=== PATIENT | male | born 1980 | race Two or more races ===

== ENCOUNTER 2022-05-23 18:24 | Emergency (ER) | payer MEDICAID ==
[~2022-05-23] VITALS: Ht 167.6 cm; Wt 81.6 kg
--- NOTE | 2022-05-23 20:27 | NUR ---
Dr. Dotson at bedside for MSE
--- NOTE | 2022-05-23 20:28 | NUR ---
pt in room 4b pt denies dizziness, pt c/o left face side pain, and left arm numbness. pt with steady gait. pupils equal round reactive. pt with symmetrical smile and sticks tongue out midline.
[2022-05-23] MEDS ORDERED: IV NORMAL SALINE 1000 ML BAG IV ONE (20:30)
--- NOTE | 2022-05-23 20:30 | NUR ---
there was a previous order for monitor and iv access. I spoke with Dr. Dotson he states this is not needed.
--- NOTE | 2022-05-23 20:32 | NUR ---
Dr. Dotson in room for NESHA.
--- NOTE | 2022-05-23 20:45 | NUR ---
pt went to cat scan,.
[2022-05-23 20:53] LABS: MEAN CORPUSCULAR HEMOGLOBIN 32.6 uug (23.8-33.4); MEAN CORPUSCULAR VOLUME 92.6 fL (73.0-96.2); PLATELET COUNT (AUTO) 276 K/uL (152-348)
[2022-05-23 20:54] LABS: CREATININE 1.2 mg/dL (0.6-1.3); POTASSIUM 3.8 mmol/L (3.5-5.1)
--- NOTE | 2022-05-23 21:00 | NUR ---
pt returned from cat scan.
[2022-05-23 21:14] LABS: *AMPHETAMINE, URINE NEGATIVE (NEGATIVE); *CANNABINOID, URINE NEGATIVE (NEGATIVE); *COCCAINE, URINE NEGATIVE (NEGATIVE); *OPIATE, URINE NEGATIVE (NEGATIVE); *PHENCYCLIDINE SCREEN,URINE NEGATIVE (NEGATIVE)
[2022-05-23] MEDS ORDERED: ACYCLOVIR 400 MG TABLET PO ONE (21:30)
[2022-05-23] MEDS ORDERED: ACET-2154 PO (21:32)
[2022-05-23] MEDS ORDERED: ACYC400T19 PO (21:32)
[2022-05-23] MEDS ORDERED: ACYCLOVIR 200 MG CAPSULE ONE (21:38)
--- NOTE | 2022-05-23 21:44 | NUR ---
Patient discharged to home in stable condition. Written and verbal after care instructions given. Patient verbalizes understanding of instructions. Stressed follow up or return to ER for worsening s/s.
[2022-05-23 21:45] VITALS: BP 130/80
== END 2022-05-23 21:45 | disposition home or self-care (01) ==
LOC: ER 18:32
DX: R20.0 Anesthesia of skin (principal); R03.0 Elevated blood-pressure reading, without diagnosis of hypertension
CPT/HCPCS: 36415; 70450; 71045; 85025; A4663